=== PATIENT | male | born 1965 | race Caucasian/White ===

== ENCOUNTER 2016-07-09 00:05 | Emergency (ER) | payer OTHER, BC ==
[~2016-07-09] VITALS: Ht 177.8 cm; Wt 74.8 kg
[2016-07-09] MEDS ORDERED: TRAZODONE HCL50 MG PO (00:22)
[2016-07-09] MEDS ORDERED: ZOLPIDEM TARTRA10 MG PO (00:22)
[2016-07-09] MEDS ORDERED: PROGRAF 1 MG1 MG (00:23)
[2016-07-09] MEDS ORDERED: DIAZEPAM 10 MG10 M2 PO (00:23)
[2016-07-09] MEDS ORDERED: OXYCODONE HCL10 MG PO (00:24)
[2016-07-09 00:34] VITALS: BP 131/92
[2016-07-09 01:02] LABS: ABSOLUTE NEUTROPHILS 8.2 thou/uL (1.4-8.2); BASOPHILS 0.8 % (0.0-2.0); EOSINOPHILS 0.8 % (0.0-3.0); HEMATOCRIT 44.1 % (42.0-52.0); HEMOGLOBIN 15.2 gm/dL (14.0-18.0); LYMPHOCYTES 17.5 % (24.0-44.0); MCH 28.7 pg (26.0-34.0); MCHC 34.4 % (28.0-37.0); MCV 83.6 fL (80.0-100.0); PLATELET COUNT 170 thou/uL (150-400); POLYS 70.9 % (36.0-66.0); RBC 5.28 mil/uL (4.50-6.00); WBC 11.6 thou/uL (4.0-11.0)
[2016-07-09 01:03] LABS: MANUAL DIFF NO
[2016-07-09 01:17] LABS: POTASSIUM 2.8 mmol/L (3.5-5.1)
[2016-07-09 01:20] LABS: TOTAL BILIRUBIN 0.9 mg/dL (<0.1-1.0); TOTAL PROTEIN 7.7 g/dL (6.4-8.2)
== END 2016-07-09 01:32 | disposition home or self-care (01) ==
LOC: ER 00:05
PROVIDERS: Emergency Medicine
DX: T50.905A Adverse effect of unspecified drugs, medicaments and biological substances, initial encounter (principal); E87.6 Hypokalemia; I48.91 Unspecified atrial fibrillation; N18.6 End stage renal disease; Z91.041 Radiographic dye allergy status; Y92.89 Other specified places as the place of occurrence of the external cause